=== PATIENT | male | born 1980 | race Caucasian/White ===

== ENCOUNTER 2019-06-09 14:03 | Emergency (ER) | payer BC ==
--- OUTSIDE RECORDS SUMMARY | 2019-06-09 14:12 | XMS REPORT | Summary of Care ---
:1980 Author Organization [facility] Address [address] [address] Care Team Providers Name Role Phone Tai Saavedra Primary Care Provider Reason for Referral MRI/CAT/PET Scan (Routine) Status Reason Specialty Diagnoses / Referred By Referred To Procedures Contact Contact Pending Review Diagnoses Chronic pain of left wrist La Paulino, Procedures MR UPPER EXTREMITY WO CONTRAST RIGHT [facility] [address] [place] [address] MRI/CAT/PET Scan (Routine) Status Reason Specialty Diagnoses / Referred By Referred To Procedures Contact Contact Pending Review Diagnoses Chronic pain of right wrist La Paulino, Procedures MR UPPER EXTREMITY WO CONTRAST LEFT [address] [place] [address] Reason for Visit Reason Comments Follow Up bilateral wrist pain, Was doing PT. Pain continues. Discuss MRI Encounter Details Date Type Department Care Team Description 04/12/2019 Office Visit Lisa RonquilloDonte byrdia, Chronic pain of left wrist (Primary Dx); Practice [facility] Chronic pain of right wrist [address] [place] [address] [place] [address] [phone] Allergies No Known Allergiesdocumented as of this encounter (statuses as of 04/12/2019) Medications Medication Sig Dispensed Refills Start Date End Date Status ibuprofen discharge Take 400 mg by 0 Active (MOTRIN) 400 MG Oral mouth EVERY SIX Tab HOURS NEEDED for Pain. documented as of this encounter (statuses as of 04/12/2019) Active Problems No known active problemsdocumented as of this encounter (statuses as of 2018) Immunizations Name Administration Dates Next Due Influenza (IM) Preservative Free 03/18/2014 documented as of this encounter Social History Tobacco Use Types Packs/Day Years Used Date Never Smoker Smokeless Tobacco: Never Used Alcohol Use Drinks/Week oz/Week Comments Yes 2 a week Sex Assigned at Date Recorded Not on file Job Start Date Occupation Industry Not on file Not on file Not on file Travel History Travel Start Travel End No recent travel history available. documented as of this encounter Last Filed Vital Signs Vital Sign Reading Time Taken Comments Blood Pressure 138/86 04/12/2019 8:21 AM EST Pulse 78 04/12/2019 8:21 AM EST Temperature - - Respiratory Rate - - Oxygen Saturation 98% 04/12/2019 8:21 AM EST Inhaled Oxygen Concentration - - Weight 88.5 kg (195 lb) 04/12/2019 8:21 AM EST Height 168.9 cm (5' 6.5") 04/12/2019 8:21 AM EST Body Mass Index 31 04/12/2019 8:21 AM EST documented in this encounter Patient Instructions Patient InstructionsLa Paulino FNP - 04/12/2019 8:40 AM ESTContinue current treatment MRIs ordered documented in this encounter Progress Notes La Paulino FNP - 04/12/2019 8:40 AM EST PATIENT: Miguel Glover : 1980 DATE OF SERVICE: 04/12/2019 CHIEF COMPLAINT: Chief Complaint Patient presents with Follow Up bilateral wrist pain, Was doing PT. Pain continues. Discuss MRI Subjective HISTORY OF PRESENT ILLNESS: Miguel Glover is a 38-y.o. male. HPI Ongoing pain at wrists - started in August - L>R - has seen PT and OT for a total of 20 visits - hassplints that help - taking 3 tabs of Ibuprofen 3 times a day . Pain no longer radiating up are - just in wrists - with movement. Original tendonitis has resolved. Therapist suggested MRI to look for possible TFCC tear since pain has remained constant. No known injury Past Medical History: Diagnosis Date Dental cyst Family History Problem Relation Age of Onset Hypertension Father brother Alzheimer's Disease Unknown P GP Current Outpatient Medications Medication Sig ibuprofen discharge (MOTRIN) 400 MG Oral Tab Take 400 mg by mouth EVERY SIX HOURS NEEDED for Pain. No current facility-administered medications for this visit. No Known Allergies Social History Socioeconomic History Marital status: Spouse name: Not on file Number of children: Not on file Years of education: Not on file Highest education level: Not on file Occupational History Not on file Social Needs Financial resource strain: Not on file Food insecurity Worry: Not on file Inability: Not on file Transportation needs Medical: Not on file Non-medical: Not on file Tobacco Use Smoking status: Never Smoker Smokeless tobacco: Never Used Substance and Sexual Activity Alcohol use: Yes Comment: 2 a week Drug use: No Sexual activity: Not on file Lifestyle Physical activity Days per week: Not on file Minutes per session: Not on file Stress: Not on file Relationships Social connections Talks on phone: Not on file Gets together: Not on file Attends bahai service: Not on file Active member of club or organization: Not on file Attends meetings of clubs or organizations: Not on file Relationship status: Not on file Intimate partner violence Fear of current or ex partner: Not on file Emotionally abused: Not on file Physically abused: Not on file Forced sexual activity: Not on file Other Topics Concern Not on file 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 REVIEW OF SYSTEMS: Review of Systems Musculoskeletal: Positive for joint pain and myalgias. Skin: Negative for rash. Neurological: Negative for tingling. Objective PHYSICAL EXAM: VITALS: BP 138/86 | Pulse 78 | Ht 5' 6.5" (1.689 m) | Wt 195 lb (88.5 kg) | SpO2 98% | BMI 31.00 kg/m Body mass index is 31 kg/m. Physical Exam Vitals signs and nursing note reviewed. Constitutional: Appearance: Normal appearance. Musculoskeletal: Right wrist: He exhibits tenderness. He exhibits normal range of motion, no swelling, no crepitusand no deformity. Left wrist: He exhibits tenderness. He exhibits normal range of motion, no swelling, no crepitus and no deformity. Arms: Skin: General: Skin is warm and dry. Capillary Refill: Capillary refill takes less than 2 seconds. Findings: No bruising, erythema or lesion. Neurological: Mental Status: He is alert and oriented to person, place, and time. Comments: Slightly decreased hand grasp on left Psychiatric: Mood and Affect: Mood normal. Behavior: Behavior normal. Behavior is cooperative. ASSESSMENT / IMPRESSION: ICD-9-CM ICD-10-CM 1. Chronic pain of left wrist 719.43 M25.532 MR UPPER EXTREMITY WO CONTRAST RIGHT 338.29 G89.29 2. Chronic pain of right wrist 719.43 M25.531 MR UPPER EXTREMITY WO CONTRAST LEFT 338.29 G89.29 Plan Continue current treatment MRIs ordered Author: JA Markham 04/12/2019 08:51 documented in this encounter Plan of Treatment Name Type Priority Associated Diagnoses Order Schedule MR UPPER EXTREMITY WO Imaging Routine Chronic Pain Of Right Expected: 04/12, CONTRAST LEFT Wrist Expires: 04/11/2020 MR UPPER EXTREMITY WO Imaging Routine Chronic Pain Of Left Expected: 2018, CONTRAST RIGHT Wrist Expires: 04/11/2020 Health Maintenance Due Date Last Done Comments DTaP/Tdap/Td Vaccines (1 - 1989 Tdap) HIV SCREENING 1993 DIABETES SCREENING 1996 LIPID DISORDER SCREENING 1996 INFLUENZA VACCINE (#1) 2018 03/18/2014 DEPRESSION SCREENING 10/30/2019 10/29/2018, 10/29/2018 HEPATITIS A IMMUNIZATION Aged Out No longer eligible based SERIES on patient's age to complete this topic HPV IMMUNIZATION SERIES Aged Out No longer eligible based on patient's age to complete this topic MENINGOCOCCAL VACCINE IMM Aged Out No longer eligible based on patient's age to complete this topic PNEUMOCOCCAL 0-64 YRS Aged Out No longer eligible based on patient's age to complete this topic documented as of this encounter Results Not on filedocumented in this encounter Visit Diagnoses Diagnosis Chronic pain of left wrist Chronic pain of right wrist documented in this encounter Insurance Payer Benefit Plan / Subscriber ID Effective Dates Phone Address Type Group YADIRA BRADLEY xxxxxxxxxxxx 2018-Present Yadira BLACKMON PPO Guarantor Name Account Type Relation to Date of Phone Billing Patient Address Miguel Glover Personal/Family 1980 [address]) [place] [phone] [place], [place] (Work) [address] documented as of this encounter
[2019-06-09 14:14] VITALS: BP 141/75
[2019-06-09 14:44] LABS: ABS Basophils 0.1 10^3/ul (0-0.2); ABS Eosinophils 0.2 10^3/ul (0-0.6); ABS Monocytes 0.6 10^3/ul (0-0.8); ABS Neutrophils 5.5 10^3/ul (1.5-7.7); Eosinophil % 2.3 %; Hematocrit 47 % (42-52); Hemoglobin 15.7 g/dL (14.0-18.0); Lymphocyte % 24.3 %; Mean Corpuscular HGB Conc 34 g/dL (31-36); Mean Corpuscular Hemoglobin 29 pg (27-31); Mean Corpuscular Volume 86 fL (80-94); Mean Platelet Volume 8.7 fL (7.4-10.4); Platelet Count 349 10^3/uL (150-450); Red Blood Count 5.43 10^6 /uL (4.18-5.48); Red Cell Distribution Width 13 % (10-15); White Blood Count 8.3 10^3/uL (3.5-10.8)
[2019-06-09 14:50] LABS: INR 0.97 (0.82-1.09)
[2019-06-09 15:10] LABS: Albumin 4.9 g/dL (3.2-5.2); Calcium 9.7 mg/dL (8.6-10.3); Total Bilirubin 0.4 mg/dL (0.2-1.0)
[2019-06-09 15:16] LABS: BUN/Creatinine Ratio 18.6 (8-20); EGFR African American 119.2 (>60); EGFR Non-African American 98.5 (>60); Globulin 2.4 g/dL (2-4); Total Protein 7.3 g/dL (6.4-8.9)
--- NOTE | 2019-06-09 17:20 | ED ---
HPI Chest Pain - HPI Summary HPI Summary: 38 y/o male presented to [facility] for CP beginning 0900 while he was working on the computer. He began experiencing tightness in the chest for several minutes at which point he decided he should lay down. After laying down for about 15 minutes he began to improve and was able to walk around. Pt notes hx of HTN, no cardiac hx, no tobacco use, and no prior stress test. No hx DVT PE. Did have recent travel. No LE swelling. He notes fhx of heart attacks between 35-60y/o. - History of Current Complaint Chief Complaint: EDChestPainROMI Time Seen by Provider: 06/09/19 16:30 Hx Obtained From: Patient, Family/Chief Operations Officer Onset/Duration: Started Hours Ago, Atraumatic Current Severity: Mild Pain Intensity: 2 Pain Scale Used: 0-10 Numeric Character: Pressure/Squeezing PMH/Surg Hx/FS Hx/Imm Hx Sensory History: Denies: Hx Legally Blind, Hx Deafness Opthamlomology History: Denies: Hx Legally Blind EENT History: Denies: Hx Deafness Infectious Disease History: No Infectious Disease History: Reports: Traveled Outside the [place] in Last 30 Days - Family History Known Family History: Positive: Other - heart failure - Social History Alcohol Use: Occasionally Substance Use Type: Reports: None Smoking Status (MU): Never Smoked Tobacco Review of Systems Negative: Fever - vitals show temp at 97.4F Positive: Chest Pain All Other Systems Reviewed And Are Negative: Yes Physical Exam - Summary Physical Exam Summary: Constitutional: Well-developed, Well-nourished, Alert. (-) Distressed Skin: Warm, Dry HENT: Normocephalic; Atraumatic Eyes: Conjunctiva normal Neck: Musculoskeletal ROM normal neck. (-) JVD, (-) Stridor, (-) Nuchal rigidity Cardio: Rhythm regular, rate normal, Heart sounds normal; Intact distal pulses; Radial pulses are 2+ and symmetric. (-) Murmur Pulmonary/Chest wall: Effort normal. (-) Respiratory distress, (-) Wheezes, (-) Rales Abd: Soft, (-) tenderness, (-) Distension, (-) Guarding, (-) Rebound Musculoskeletal: (-) Edema Lymph: (-) Cervical adenopathy Neuro: Alert, Oriented x3 Psych: Mood and affect Normal Triage Information Reviewed: Yes Vital Signs On Initial Exam: Initial Vitals Temp Pulse Resp BP Pulse Ox 97.4 F 57 16 141/75 100 06/09/19 14:11 06/09/19 14:11 06/09/19 14:11 06/09/19 14:11 06/09/19 14:11 Vital Signs Reviewed: Yes Procedures - Sedation Patient Received Moderate/Deep Sedation with Procedure: No Diagnostics - Vital Signs Vital Signs Temp Pulse Resp BP Pulse Ox 06/09/19 14:11 97.4 F 57 16 141/75 100 - Laboratory Lab Results: Lab Results 06/09/19 06/09/19 06/09/19 Range/Units 14:35 14:35 14:35 WBC 8.3 (3.5-10.8) 10^3/uL RBC 5.43 (4.18-5.48) 10^6 /uL Hgb 15.7 (14.0-18.0) g/dL Hct 47 (42-52) % MCV 86 (80-94) fL MCH 29 (27-31) pg MCHC 34 (31-36) g/dL RDW 13 (10-15) % Plt Count 349 (150-450) 10^3/uL MPV 8.7 (7.4-10.4) fL Neut % (Auto) 65.5 % Lymph % (Auto) 24.3 % [place] % (Auto) 7.1 % Eos % (Auto) 2.3 % Baso % (Auto) 0.8 % Absolute Neuts (auto) 5.5 (1.5-7.7) 10^3/ul Absolute Lymphs (auto) 2.0 (1.0-4.8) 10^3/ul Absolute Monos (auto) 0.6 (0-0.8) 10^3/ul Absolute Eos (auto) 0.2 (0-0.6) 10^3/ul Absolute Basos (auto) 0.1 (0-0.2) 10^3/ul Absolute Nucleated RBC 0.0 10^3/ul Nucleated RBC % 0.0 INR (Anticoag Therapy) 0.97 (0.82-1.09) Sodium 139 (135-145) mmol/L Potassium 4.0 (3.5-5.0) mmol/L Chloride 104 (101-111) mmol/L Carbon Dioxide 28 (22-32) mmol/L Anion Gap 7 (2-11) mmol/L BUN 16 (6-24) mg/dL Creatinine 0.86 (0.67-1.17) mg/dL Est GFR ( Amer) 119.2 (>60) Est GFR (Non-Af Amer) 98.5 (>60) BUN/Creatinine Ratio 18.6 (8-20) Glucose 95 (70-100) mg/dL Calcium 9.7 (8.6-10.3) mg/dL Total Bilirubin 0.40 (0.2-1.0) mg/dL AST 16 (13-39) U/L ALT 18 (7-52) U/L Alkaline Phosphatase 47 (34-104) U/L Troponin I 0.00 (<0.03) ng/mL Total Protein 7.3 (6.4-8.9) g/dL Albumin 4.9 (3.2-5.2) g/dL Globulin 2.4 (2-4) g/dL Albumin/Globulin Ratio 2.0 (1-3) Result Diagrams: 06/09/19 14:35 06/09/19 14:35 Lab Statement: Any lab studies that have been ordered have been reviewed, and results considered in the medical decision making process. - EKG 1408 Cardiac Rate: Bradycardia EKG Rhythm: Sinus Bradycardia Summary of EKG Findings: An EKG at 1408 reveals normal sinus rhythm 58bpm, nml axis, nml intervals. No STEMI. No acute changes. ED physician has reviewed and interpreted this EKG. Chest Pain Course/Dx - Course Course Of Treatment: 38 y/o male p/w episode of CP at rest. - Chest Pain DDX: The patient is well appearing, with stable vitals. Given the patient's clinical presentation, highest on differential is atypical CP. Although less likely, differential also includes the following: --Pneumothorax: Equal breath sounds, story inconsistent since gradual onset of symptoms. CXR shows no evidence of pneumothorax. Unlikely. --Cardiac tamponade: The history and physical are not concerning for tamponade. No Pulsus Paradoxus, no tachypnea. Unlikely. --Mediastinitis or esophageal rupture: The history is not consistent , as the patient has had no recent history of significant wretching, instrumentation, or mediastinal surgeries. Unlikely. --Aortic dissection: The patient does not describe the classical tearing chest pain radiating into the back, and the CXR does not show mediastinal widening or other signs of aortic dissection. Unlikely. --PE: Vitals wnl (not hypoxic, tachycardic or tachypneic) . PERC neg. --ACS: The initial EKG shows no ischemic changes. The initial troponin is not elevated. Heart score - HEART Score. Based on a HEART score of 2 the patient has a low risk (<2% chance) of major adverse cardiac event within the next 6 weeks. I explained to the patient that based on the work-up today, her risk of heart attack is low and that he/she will be discharged with outpatient follow-up. Strict return precautions were discussed regarding worsening chest pain, new / atypical pain, shortness of breath, or any other serious concerns. Patient endorsed understanding and has no questions at this time. - Diagnoses Provider Diagnoses: Chest pain, HTN (hypertension) Discharge ED - Sign-Out/Discharge Documenting (check all that apply): Patient Departure - dc - Discharge Plan Condition: Stable Disposition: HOME Patient Education Materials: Chest Pain (ED) Referrals: Tai Saavedra MD [Primary Care Provider] - Additional Instructions: You were seen in the emergency department for chest pain. Your EKG (heart tracing), labs and chest x-ray did not show any cause for pain. Important that you follow up with you primary care doctor in the next 1-2 days to help schedule an outpatient stress test. Please return to the emergency department for continued chest pain, trouble breathing, passing out, or if you're concerned. - Billing Disposition and Condition Condition: STABLE Disposition: Home - Attestation Statements Document Initiated by Scribe: Yes Documenting Scribe: Sumanth Fu Provider For Whom Davide is Documenting (Include Credential): My Moreira Scribe Attestation: Sumanth Lofton, scribed for My Moreira on 06/10/19 at 1144. Scribe Documentation Reviewed: Yes Provider Attestation: The documentation as recorded by the davide, Sumanth Fu accurately reflects the service I personally performed and the decisions made by me, Caelyn T [place] Status of Scribe Document: Viewed
== END 2019-06-09 17:45 | disposition home or self-care (01) ==
LOC: ED 14:03
DX: R07.9 Chest pain, unspecified (principal); I10 Essential (primary) hypertension
CPT/HCPCS: 36415; 71046; 80053; 84484; 85025; 85610; 93005; 99282